=== PATIENT | female | born 1955 | race Asian ===

== ENCOUNTER → 2016-06-07 | Outpatient (CLI) | payer SELFPAY ==
[~2016-06-07] MED LIST: TRIA80CR3 TOP
[2016-06-07 10:50] VITALS: BP 180/85
--- NOTE | 2016-06-07 10:50 | Urgent Care T Sheet Gen (E) ---
Intake General Temperature (Fahrenheit): 98.3 Pulse: 74 Blood Pressure Systolic: 180 Blood Pressure Diastolic: 85 Respirations: 18 SPO2: 98 Description of Symptoms Patient presents with a rash which has been present for 6 weeks. Started in the low back and has spread to the posterior neck. States it isn't oozing but is very itchy and flat. Feels that the skin is tighter in the affected areas. No history. Denies any change to her soaps or detergents. Been using calamine lotion which helps some. States certain shirts irritate the area from rubbing. History of Present Illness Allergies: Uncoded Allergies: REKHAIENEtienne (Allergy, Severe, 11/09/14) ORBITAL EDEMA Home Meds Active Scripts Triamcinolone Acetonide (Kenalog 0.1% Cream)80 Gm Cream..g.1 Gm TOP BID #1 TUBE Apply 1 gram topically to affected area BID until rash is gone Prov:CRISTEL LAZCANO 06/07/16 Respiratory Constitutional Symptoms: No syptoms reported EENTM: No symptoms reported Respiratory: No symptoms reported Cardiovascular: No symptoms reported Skin: Rash All Other Systems Reviewed Remaining Systems: All other systems reviewed with negative findings Past Gffgxwz-Fesvst-Kbmctx Hx Patient's Social History Recent foreign travel: No Surgeries/Hospitalizations Hospitalization/Surgery Hx: DENIES Respiratory Respiratory History: Asthma Cardiovascular Cardiovascular History: None Gastrointestinal GI/Endocrine History: None Diabetes Diabetes: No HEENT Impaired Vision: Glasses Hearing Impaired: None Physical Exam Physical Exam General Appearance: WD/WN No apparent distress Skin Exam: Rash (macular rash noted along the midline of the low back and posterior neck. slight redness/discoloration to the area. skin isn't warm or tender to the touch. no plaques. certain spots are scabbed over due to constant scratching.) Departure Urgent Care Impression Impression: Primary Impression: Rash Additional Impression: Hypertension Qualified Code: I10 - Essential (primary) hypertension Departure Disposition: 01 HOME OR SELF-CARE Condition: Stable Additional Instructions: Unsure the etiology of the rash, alfredo since it has been present for 6 weeks. She may DC the calamine lotion and use the triamcinolone cream instead. Also instructed her to take either Loratadine or Benadryl for itch Avoid irritating clothes Return as needed. Note was given excusing her from work per her request. She is instructed to f/u with PCP regarding BP. It was high the last time I saw her Patient understands DC instructions. All questions were answered. Scripts Triamcinolone Acetonide (Kenalog 0.1% Cream)80 Gm Cream..g.1 Gm TOP BID #1 TUBE Apply 1 gram topically to affected area BID until rash is gone Prov:CRISTEL LAZCANO 06/07/16 End of report . CRISTEL LAZCANO Jun 07, 2016 10:32
== END ==
LOC: MHUC 10:05
PROVIDERS: ATTEND Physician Assistant
DX: R21 Rash and other nonspecific skin eruption (principal); I10 Essential (primary) hypertension
CPT/HCPCS: 99212